=== PATIENT | female | born 1995 | race Caucasian/White ===

== ENCOUNTER 2017-10-09 13:30 | Outpatient (RCR) | payer OTHER, SELFPAY ==
--- NOTE | 2017-09-16 13:14 | PT.OPPOC ---
Current Diagnoses Complex regional pain syndrome I, unspecified (09/16/17) Provider Visit Care Team Role Provider Type Swathi Hong PA-C Family Provider Non-Staff Primary Care Provider Specialty: Medical Address: [address] [place] [address], [phone] Email: Jorge Montero MD Attending Provider Non-Staff Specialty: Internal Medicine Address: [address] [place] [address], [phone] Email: Plan Of Care PT-OP-T Assessment and Plan Start: 09/16/17 08:08 Freq: Status: Active Protocol: Document 09/16/17 08:20 LRN (Rec: 09/16/17 08:43 LRN [id number]) Physical Therapy Assessment Rehab Potential Rehabilitation Potential Fair Evaluation Complexity Number of Personal Factors/Comorbidities 1-2 Number of Body Systems Impaired 4 or More Clinical Presentation at Evaluation Evolving Impairments Impairments Activity Tolerance Functional Mobility Gait Pain ROM Sensation Soft Tissue Mobility Strength Other Concerns Fall Risk Increased Age Related Concerns 19-35 year old: Impact on work, family. Barriers to Rehabilitation Chronicity of condition. Diagnosis Goals Three Impairment R UE pain limiting ability to weight bear for ambulation. Short Term Goal (STG) Pt will be able to tolerate weightbearing (WBing) through the R UE for ambulation. STG Duration 10/24/17 Two Impairment Debilitating R LE pain Nursing Home Goal (LTG) Decreased R LE pain with pt able to stand and weight bear on the R LE for ambulation with use of an assistive device. LTG Duration 12/19/17 One Impairment Lacks appropriate Home program /self care Sweeper Driver Goal (LTG) Educate pt in independent HEP/ Self care program to manage her condition. LTG Duration 12/19/17 Assessment Summary Assessment Pt presents with extremely limited tolerance to palpation , ROM, movement tolerance of the R LE which is greatly limiting her functional ability. Her R UE is beginning to become limited due to pain that starts proximal to her elbow extending to her finger tips. The pt does not demonstrate increased temperature or severe swelling in the limbs that is somewhat characteristic of CRPS. The pt demonstrates some interesting neurological responses to DTR testing and with her sensation changes it would be recommended that she have a neurological consult. The pt stated she has not yet seen a neurologist. This patient is known to me for treatment of pelvic dysfunction and perineal pain in 2016. At that time the pt had worsening of pain at night and showed notable difference in her UE vs LE deep tendon reflex response. From my understanding from the patient no further medical testing was performed; therefore i would recommend assessment for possible systemic involvement . From previous history intake form the pt had noted a familial history of colon CA. The pt is reluctant to attend therapy with fears of her pain worsening. The pt will benefit from skilled physical therapy to improve her UE/LE mobility, decrease pain, improve mobility and function if tolerated. It is expected that with the pt's severity of pain and dysfunction and per the diagnosis therapy is expected to be extended in duration. Physical Therapy Plan Frequency and Duration Frequency of Treatment 2x/Week Duration of Treatment 3 months Plan of Care Start Date 09/16/17 Plan of Care End Date 12/19/17 Therapeutic Interventions Therapeutic Interventions Aquatic Therapy Gait Training Home Exercise Program Joint Mobilizations Manual Therapy Neuromuscular Re-education Patient/Caregiver Education Self-Care/Home Management Sensory Integration Soft Tissue Mobilization Therapeutic Exercises Modalities Cold Pack/Ice Massage Electric Stimulation Hot Packs Other Referrals/Consults Referrals/Consults Recommended Examination for possible pathological involvement. Neurological consult if sensation changes persist. Next Visit Focus/Plan Next Note Type Treatment Note Next Visit Plan Check Gait. Check muscle tone , recheck L UE DTR's and check for pronator drift, check L hip mobility, check L LE strength & check special tests for hips if pt tolerates. Monitor neurological involvement (sensation, motor, coordination). MH to R LE if tolerated with UE ROM ex's. f /b MH to R UE with manual lumbar or RLE traction & Initiation HEP: LE stretches and ROM. Plan of Care Dates Plan of Care Start Date 09/16/17 Plan of Care End Date 12/19/17 Please Sign and Return: I have reviewed this Plan of Care and certify that the skilled therapy services above are required to meet the patient?s needs. Physician Signature Date Printed Name and Credentials Clinical Instructor Signature Printed Name and Credentials
--- NOTE | 2017-09-16 15:00 | PT.OIE ---
Current Diagnoses Complex regional pain syndrome I, unspecified (09/16/17) Provider Visit Care Team Role Provider Type Swathi Hong PA-C Family Provider Non-Staff Primary Care Provider Specialty: Medical Address: [address] [place] [address], [phone] Email: Jorge Montero MD Attending Provider Non-Staff Specialty: Internal Medicine Address: [address] [place] [address], [phone] Email: Physical Therapy Initial Evaluation PT-OP-A Visit Information Start: 09/16/17 08:08 Freq: Status: Active Protocol: Document 09/16/17 08:20 LRN (Rec: 09/16/17 08:43 LRN [id number]) Out-Patient Physical Therapy Visit Information Visit Information Visit Type Initial Evaluation Visit Note 03/26 Visit Start Time 08:20 Visit Stop Time 09:10 Total Visit Minutes 50 Visit Number 1 Number of PROCESS DEVELOPMENT CHEMIST Visits 0 Evaluation Information Evaluation Date 09/16/17 PT-OP-B Current Condition Start: 09/16/17 08:08 Freq: Status: Active Protocol: Document 09/16/17 08:20 LRN (Rec: 09/16/17 08:43 LRN [id number]) Current Condition History of Current Condition Onset Date 05/2017 Current Complaints Pain and dysfunction in the R LE and beginning in R UE. History of Current Condition Pt reports ~05/2017 she got out of bed and fell forward due to dizziness, landing on primarily her knees. Her knees were sore but she didn't feel she needed to be seen. 2 weeks later her condition worsened in pain and she couldn't walk. An MRI of her knees were normal. 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 She reports the pain is now not just a knee problem but the entire leg. She denies having any vascular test done and has not seen a neurologist . Pain is described as a constant deep ache, like heavy pressure with electrical jolts up/down the R leg and foot. At night she feels like the LE's are on fire. Her R arm is becoming painful after falling on her R arm a month ago, but is a little less painful. She states her pain is the same in the arm as it is in the leg. She states her researched on the web told that her condition could spread. She reports falling 2 -3 times since the original fall, once due to becoming off balance while moving crutches and once due to medications causing low blood pressure and dizziness. She is taking Gabapentin regularly and just yesterday was prescribed an anti-inflammatory to help her sleep. She denies any history of injury to the back/ neck. Prior Treatments and Tests None. Episom bath and LE elevated. Surgery R knee age 10 due to hyperextension and had surgery to create scar tissue. Future Testing and Treatments Planned None. Waiting to be scheduled for the pain clinic in [place]. Treatment Goals Patient/Caregiver Goals Feels she was referred to therapy to begin walking again and was told she had a very long road ahead. Pt is fearful of therapy that it might make the pain in the R LE worse. Her goal is to get better. 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 Current Functional Impairments (Reported) Functional Limitations- ADL's Spouse provides assist, and max A on bad days. Other days she can use crutches to go to the bathroom and self dresses . Functional Limitations- Mobility/Gait Use of crutches or wheelchair. Functional Limitations- Work/School Not able to go to place of work; therefore is currently working from home. Functional Limitations- Recreation/ Not able to participate. Hobbies Personal Factors Other Personal Factors That May Effect Works at home because unable Therapy/Recovery to travel to workplace. Works 35 down to 20 hrs/week, 2 days a week. History of falls PT-OP-C Subjective Start: 09/16/17 08:08 Freq: Status: Active Protocol: Document 09/16/17 08:20 LRN (Rec: 09/16/17 08:43 LRN [id number]) Patient Questionnaires Lower Extremity Functional Scale LEFS Score 18 LEFS Impairment 60 to 79% Impaired (Score 17- 31) OP-PT Pain Assessment Pain Assessment Grid Paper Pain Assessment Grid Completed Yes Location Right Leg Pain Location Details Entire R leg. Intensity 5 Scale Used Numeric (1 - 10) Right Arm Pain Location Details R arm from mid-upper arm distally Intensity 4 Scale Used Numeric (1 - 10) Home Pain Medication Use Pain Medications Used Yes Pain Behaviors Pain Behaviors Wincing Comments Pain Comments Pain reported pain is a constant deep ache, like heavy pressure with electrical jolts up/down the R leg and foot, and R UE. PT-OP-F Manual Assessment Start: 09/16/17 08:08 Freq: Status: Active Protocol: Document 09/16/17 08:20 LRN (Rec: 09/16/17 17:54 LRN [id number]) Manual Assessments Soft Tissue Assessment Soft Tissue Mobility Assessment Mild increased temperature of R foot. Purple coloring of R foot when dependent. PT-OP-G Mobility & Gait Start: 09/16/17 08:08 Freq: Status: Active Protocol: Document 09/16/17 08:20 LRN (Rec: 09/16/17 17:54 LRN [id number]) OP Gait Assessment Gait Gait Assistance Required: Standby Assistance Total Assistance Able to Maintain Weight Bearing Status No During Gait Factors Limiting Gait Function Factors Limiting Gait Function Decreased Activity Tolerance Decreased Strength Limited Range of Motion Pain Poor Balance Comments Gait Comments Pt unable to ambulate due to pain in the R LE & UE. She is able to partially stand pivot transfer wheelchair to plinth with NWBing on R LE. PT-OP-H Neuro Start: 09/16/17 08:08 Freq: Status: Active Protocol: Document 09/16/17 08:20 LRN (Rec: 09/16/17 17:54 LRN [id number]) Sensation Evaluation Gross Sensation Gross Sensation Right LE Impaired Sensation Description Hyperesthesia [place] Burning Location Details Right Leg Light Touch Intact/Normal Deep Tendon Reflex & Clonus Assessment Deep Tendon Reflex Left Brachioradialis Deep Tendon Reflex 2+ Normal Left Tricep Deep Tendon Reflex 2+ Normal Left Bicep Deep Tendon Reflex 2+ Normal Right Brachioradialis Deep Tendon Reflex 2+ Normal Right Tricep Deep Tendon Reflex 1+ Diminished Right Bicep Deep Tendon Reflex 0 Absent Left Achilles Deep Tendon Reflex 3+ Normal But Brisk Left Patellar Deep Tendon Reflex 1+ Diminished Right Achilles Deep Tendon Reflex 0 Absent Right Patellar Deep Tendon Reflex 1+ Diminished PT-OP-K Range of Motion Start: 09/16/17 08:08 Freq: Status: Active Protocol: Document 07/03/18 08:20 LRN (Rec: 07/03/18 17:54 LRN [id number]) Hip Goniometric Range of Motion Hip Measured in Degrees Left Passive Straight Leg Raise 80 Right Passive Straight Leg Raise 15 Internal Rotation 20 External Rotation 65 Knee Goniometric Range of Motion Knee Measured in Degrees Left Flexion Active (degrees) 155 Extension Active (degrees) 0 Right Flexion Active (degrees) 130 Knee ROM Limitations Comments R knee lacks 15 deg's ext due to general pain. PT-OP-M Strength Start: 09/16/17 08:08 Freq: Status: Active Protocol: Document 09/16/17 08:20 LRN (Rec: 09/16/17 17:55 LRN [id number]) Ankle/Foot Strength Ankle and Foot Manual Muscle Testing Right Dorsiflexion (L4) 3- Fair- Plantarflexion (S1) 4 Good Inversion 3- Fair- Eversion (S1) 3- Fair- Comments Pain in LE with testing. Toe Strength Toe Manual Muscle Testing Right Flexion 3- Fair- Extension 2- Poor- Comments R LE pain with testing. PT-OP-Q Treatments Start: 09/16/17 08:08 Freq: Status: Active Protocol: Document 09/16/17 08:20 LRN (Rec: 09/16/17 17:16 LRN [id number]) Self-Care/Home Management Treatment Education Patient Education Home Exercise Program Activities Self-Care/Home Management Activities I/S pt in self RLE manual traction in hooklie and sitting knee ext/ankle DF for stretch to RLE. PT-OP-T Assessment and Plan Start: 09/16/17 08:08 Freq: Status: Active Protocol: Document 09/16/17 08:20 LRN (Rec: 09/16/17 08:43 LRN [id number]) Physical Therapy Assessment Rehab Potential Rehabilitation Potential Fair Evaluation Complexity Number of Personal Factors/Comorbidities 1-2 Number of Body Systems Impaired 4 or More Clinical Presentation at Evaluation Evolving Impairments Impairments Activity Tolerance Functional Mobility Gait Pain ROM Sensation Soft Tissue Mobility Strength Other Concerns Fall Risk Increased Age Related Concerns 19-35 year old: Impact on work, family. Barriers to Rehabilitation Chronicity of condition. Diagnosis Goals Three Impairment R UE pain limiting ability to weight bear for ambulation. Short Term Goal (STG) Pt will be able to tolerate weightbearing (WBing) through the R UE for ambulation. STG Duration 8/10/18 Two Impairment Debilitating R LE pain Longterm Goal (LTG) Decreased R LE pain with pt able to stand and weight bear on the R LE for ambulation with use of an assistive device. LTG Duration 12/19/17 One Impairment Lacks appropriate Home program /self care Longterm Goal (LTG) Educate pt in independent HEP/ Self care program to manage her condition. LTG Duration 12/19/17 Assessment Summary Assessment Pt presents with extremely limited tolerance to palpation , ROM, movement tolerance of the R LE which is greatly limiting her functional ability. Her R UE is beginning to become limited due to pain that starts proximal to her elbow extending to her finger tips. The pt does not demonstrate increased temperature or severe swelling in the limbs that is somewhat characteristic of CRPS. The pt demonstrates some interesting neurological responses to DTR testing and with her sensation changes it would be recommended that she have a neurological consult. The pt stated she has not yet seen a neurologist. This patient is known to me for treatment of pelvic dysfunction and perineal pain in 2015. At that time the pt had worsening of pain at night and showed notable difference in her UE vs LE deep tendon reflex response. From my understanding from the patient no further medical testing was performed; therefore i would recommend assessment for possible systemic involvement . From previous history intake form the pt had noted a familial history of colon CA. The pt is reluctant to attend therapy with fears of her pain worsening. The pt will benefit from skilled physical therapy to improve her UE/LE mobility, decrease pain, improve mobility and function if tolerated. It is expected that with the pt's severity of pain and dysfunction and per the diagnosis therapy is expected to be extended in duration. Physical Therapy Plan Frequency and Duration Frequency of Treatment 2x/Week Duration of Treatment 3 months Plan of Care Start Date 09/16/17 Plan of Care End Date 12/19/17 Therapeutic Interventions Therapeutic Interventions Aquatic Therapy Gait Training Home Exercise Program Joint Mobilizations Manual Therapy Neuromuscular Re-education Patient/Caregiver Education Self-Care/Home Management Sensory Integration Soft Tissue Mobilization Therapeutic Exercises Modalities Cold Pack/Ice Massage Electric Stimulation Hot Packs Other Referrals/Consults Referrals/Consults Recommended Examination for possible pathological involvement. Neurological consult if sensation changes persist. Next Visit Focus/Plan Next Note Type Treatment Note Next Visit Plan Check Gait. Check muscle tone , recheck L UE DTR's and check for pronator drift, check L hip mobility, check L LE strength & check special tests for hips if pt tolerates. Monitor neurological involvement (sensation, motor, coordination). MH to R LE if tolerated with UE ROM ex's. f /b MH to R UE with manual lumbar or RLE traction & Initiation HEP: LE stretches and ROM.
--- NOTE | 2017-09-19 14:50 | PT.OTN ---
Current Diagnoses Complex regional pain syndrome I, unspecified (09/19/17) Physical Therapy Treatment Note PT-OP-A Visit Information Start: 09/16/17 08:08 Freq: Status: Active Protocol: Document 09/19/17 08:20 LRN (Rec: 09/19/17 09:05 LRN [id number]) Out-Patient Physical Therapy Visit Information Visit Information Visit Type Treatment Note Visit Note 04/26 Visit Start Time 08:20 Visit Stop Time 09:05 Total Visit Minutes 45 Visit Number 2 Number of CHANGE MANAGEMENT CONSULTANT Visits 0 Evaluation Information Evaluation Date 09/16/17 PT-OP-B Current Condition Start: 09/16/17 08:08 Freq: Status: Active Protocol: Document 09/16/17 08:20 LRN (Rec: 09/16/17 08:43 LRN [id number]) Current Condition History of Current Condition Onset Date 05/2017 Current Complaints Pain and dysfunction in the R LE and beginning in R UE. History of Current Condition Pt reports ~05/2017 she got out of bed and fell forward due to dizziness, landing on primarily her knees. Her knees were sore but she didn't feel she needed to be seen. 2 weeks later her condition worsened in pain and she couldn't walk. An MRI of her knees were normal. 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 She reports the pain is now not just a knee problem but the entire leg. She denies having any vascular test done and has not seen a neurologist . Pain is described as a constant deep ache, like heavy pressure with electrical jolts up/down the R leg and foot. At night she feels like the LE's are on fire. Her R arm is becoming painful after falling on her R arm a month ago, but is a little less painful. She states her pain is the same in the arm as it is in the leg. She states her researched on the web told that her condition could spread. She reports falling 2 -3 times since the original fall, once due to becoming off balance while moving crutches and once due to medications causing low blood pressure and dizziness. She is taking Gabapentin regularly and just yesterday was prescribed an anti-inflammatory to help her sleep. She denies any history of injury to the back/ neck. Prior Treatments and Tests None. Episom bath and LE elevated. Surgery R knee age 10 due to hyperextension and had surgery to create scar tissue. Future Testing and Treatments Planned None. Waiting to be scheduled for the pain clinic in [place]. Treatment Goals Patient/Caregiver Goals Feels she was referred to therapy to begin walking again and was told she had a very long road ahead. Pt is fearful of therapy that it might make the pain in the R LE worse. Her goal is to get better. 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 Current Functional Impairments (Reported) Functional Limitations- ADL's Spouse provides assist, and max A on bad days. Other days she can use crutches to go to the bathroom and self dresses . Functional Limitations- Mobility/Gait Use of crutches or wheelchair. Functional Limitations- Work/School Not able to go to place of work; therefore is currently working from home. Functional Limitations- Recreation/ Not able to participate. Hobbies Personal Factors Other Personal Factors That May Effect Works at home because unable Therapy/Recovery to travel to workplace. Works 35 down to 20 hrs/week, 2 days a week. History of falls PT-OP-C Subjective Start: 09/16/17 08:08 Freq: Status: Active Protocol: Document 09/19/17 08:20 LRN (Rec: 09/19/17 09:05 LRN [id number]) OP-PT Subjective Patient Comments Patient Comments States her R foot is more painful than the entire leg, 2 /10. States she wasn't too bad after the last session. PT-OP-F Manual Assessment Start: 09/16/17 08:08 Freq: Status: Active Protocol: Document 09/16/17 08:20 LRN (Rec: 09/16/17 17:54 LRN [id number]) Manual Assessments Soft Tissue Assessment Soft Tissue Mobility Assessment Mild increased temperature of R foot. Purple coloring of R foot when dependent. PT-OP-G Mobility & Gait Start: 09/16/17 08:08 Freq: Status: Active Protocol: Document 09/16/17 08:20 LRN (Rec: 09/16/17 17:54 LRN [id number]) OP Gait Assessment Gait Gait Assistance Required: Standby Assistance Total Assistance Able to Maintain Weight Bearing Status No During Gait Factors Limiting Gait Function Factors Limiting Gait Function Decreased Activity Tolerance Decreased Strength Limited Range of Motion Pain Poor Balance Comments Gait Comments Pt unable to ambulate due to pain in the R LE & UE. She is able to partially stand pivot transfer wheelchair to int with NWBing on R LE. PT-OP-H Neuro Start: 09/16/17 08:08 Freq: Status: Active Protocol: Document 09/19/17 08:10 LRN (Rec: 09/19/17 14:34 LRN [id number]) Sensation Evaluation Location Details Right Leg Light Touch Impaired Sharp/Dull Impaired Deep Pressure Impaired Hot/Cold Intact/Normal Proprioception (Position) Intact/Normal Comments Summary Comments R UE impairment is HYPERsensitivity. Muscle Tone Tone Assessment Right Lower Extremity Flexor Tone Description Mild Hypertonicity PT-OP-J Posture/Palpation/Skin Start: 09/16/17 08:08 Freq: Status: Active Protocol: Document 09/19/17 08:20 LRN (Rec: 09/19/17 14:46 LRN [id number]) Skin Assessment Circumference Measurement 1 Location Fig 8 at ankle Measurement (Centimeters) 49 Comments Bilaterally PT-OP-K Range of Motion Start: 09/16/17 08:08 Freq: Status: Active Protocol: Document 09/16/17 08:20 LRN (Rec: 09/16/17 17:54 LRN [id number]) Hip Goniometric Range of Motion Hip Measured in Degrees Left Passive Straight Leg Raise 80 Right Passive Straight Leg Raise 15 Internal Rotation 20 External Rotation 65 Knee Goniometric Range of Motion Knee Measured in Degrees Left Flexion Active (degrees) 155 Extension Active (degrees) 0 Right Flexion Active (degrees) 130 Knee ROM Limitations Comments R knee lacks 15 deg's ext due to general pain. PT-OP-L Special Tests Start: 09/16/17 08:08 Freq: Status: Active Protocol: Document 09/19/17 08:20 LRN (Rec: 09/19/17 14:36 LRN [id number]) Special Tests Neural Special Tests- Upper Body Other- 1 Test Results + Right Comments Pronator Drift Test, R arm drifts down. Indicates possible upper motor neuron impairment. PT-OP-M Strength Start: 09/16/17 08:08 Freq: Status: Active Protocol: Document 09/16/17 08:20 LRN (Rec: 09/16/17 17:55 LRN [id number]) Ankle/Foot Strength Ankle and Foot Manual Muscle Testing Right Dorsiflexion (L4) 3- Fair- Plantarflexion (S1) 4 Good Inversion 3- Fair- Eversion (S1) 3- Fair- Comments Pain in LE with testing. Toe Strength Toe Manual Muscle Testing Right Flexion 3- Fair- Extension 2- Poor- Comments R LE pain with testing. PT-OP-Q Treatments Start: 09/16/17 08:08 Freq: Status: Active Protocol: Document 09/19/17 08:20 LRN (Rec: 09/19/17 09:05 LRN [id number]) Therapeutic Exercises Supine Exercises 5 Supine Exercise Name Elbow flex/ext Side right Reps/Minutes 10-20 as tolerated Comments With 4 Supine Exercise Name Fingers/Wrist AROM Side right Reps/Minutes 10-20 as tolerated Comments With 3 Supine Exercise Name Knee flex/extension Side right Reps/Minutes 10 Comments With 2 Supine Exercise Name ankle AROM (PF/DF/IV/EV) Side right Reps/Minutes 10-20 as tolerated Comments With MH 1 Supine Exercise Name toe flex/ext Side right Reps/Minutes 10-20 as tolerated Comments With Sitting Exercises 2 Sitting Exercise Name Ankle PF/DF Reps/Minutes 10-20 as tolerated Comments Toes purple with good vascular refill noted. 1 Sitting Exercise Name PROM of LE's/UE's Bilaterally Reps/Minutes 5' Comments Checking ROM and Tone Gait Training Gait Activity 1 Description Gait training using FWW Device Used FWW Level of Assistance CGA Surface Level Distance/Duration 5 min Treatment Focus Slow WBing onto the R LE. Comments PT ~30% WBing R LE per pt report Manual Therapy Treatment Manual Techniques 1 Type Palpation of skin for sensation check Body Location UE's/LE's. Body Position Sitting Reps/Duration 10' Comments Soft Touch: R leg is hypersensitive, R foot - normal. Sharp/Dull: R leg/foot & R forearm/hand - hypersensitive. Hot/Cold: R leg - decreased sensitivity. R foot - normal. R UE - normal. TONE: R knee flexion tone. Self-Care/Home Management Treatment Activities Self-Care/Home Management Activities I/S pt in R LE AROM ex with use of heat prior or during exercise. PT-OP-R Modalities Start: 09/16/17 08:08 Freq: Status: Active Protocol: Document 09/19/17 08:20 LRN (Rec: 09/19/17 09:05 LRN [id number]) Hot Pack/Cold Pack Treatment Hot Pack Location R UE/LE Patient Position Supine Treatment Duration (minutes) 20 Patient Tolerance Good Comments + response with use of MH, pt felt joints were easier to move. PT-OP-T Assessment and Plan Start: 09/16/17 08:08 Freq: Status: Active Protocol: Document 09/19/17 08:20 LRN (Rec: 09/19/17 09:05 LRN [id number]) Physical Therapy Assessment Rehab Potential Rehabilitation Potential Fair Evaluation Complexity Number of Personal Factors/Comorbidities 1-2 Number of Body Systems Impaired 4 or More Clinical Presentation at Evaluation Evolving Impairments Impairments Activity Tolerance Functional Mobility Gait Pain ROM Sensation Soft Tissue Mobility Strength Other Concerns Fall Risk Increased Age Related Concerns 19-35 year old: Impact on work, family. Barriers to Rehabilitation Chronicity of condition. Diagnosis Goals Three Impairment R UE pain limiting ability to weight bear for ambulation. Short Term Goal (STG) Pt will be able to tolerate weightbearing (WBing) through the R UE for ambulation. STG Duration 10/24/17 Two Impairment Debilitating R LE pain Bean Dumper Goal (LTG) Decreased R LE pain with pt able to stand and weight bear on the R LE for ambulation with use of an assistive device. LTG Duration 12/19/17 One Impairment Lacks appropriate Home program /self care Bean Dumper Goal (LTG) Educate pt in independent HEP/ Self care program to manage her condition. LTG Duration 12/19/17 Assessment Summary Assessment Pt shows no signs of swelling (Fig 8 assessment is symmetrical bilaterally) and increased temperature of the R LE/UE today. Coloration of the lower leg and foot is purplish in color, but when depressed, refills quickly indicating good vascular flow although coloration is not normal. Hypersensitivity to sharp/dull/soft touch and intact for hot/cold in the R UE/LE. Coordination is equal bilaterally for toe taps & haque slides. Pt mental status is good. Pt tolerated ROM ex 's very well with use of MH to start. Good tolerance to gait although endurance is greatly limited, possibly due to pain fear. Physical Therapy Plan Frequency and Duration Frequency of Treatment 2x/Week Duration of Treatment 3 months Plan of Care Start Date 09/16/17 Plan of Care End Date 12/19/17 Therapeutic Interventions Therapeutic Interventions Aquatic Therapy Gait Training Home Exercise Program Joint Mobilizations Manual Therapy Neuromuscular Re-education Patient/Caregiver Education Self-Care/Home Management Sensory Integration Soft Tissue Mobilization Therapeutic Exercises Modalities Cold Pack/Ice Massage Electric Stimulation Hot Packs Other Referrals/Consults Referrals/Consults Recommended Examination for possible pathological involvement. Neurological consult if sensation changes persist. Next Visit Focus/Plan Next Note Type Treatment Note Next Visit Plan Recheck DTR's L & R, check L hip mobility, check L LE strength & check special tests for hips if pt tolerates. Monitor neurological involvement as pt tolerates ( motor, coordination). MH to R LE/UE with manual lumbar or RLE traction, f/b UE/LE ROM ex 's, & Initiation HEP: LE stretches.
--- NOTE | 2017-10-06 15:08 | PT.OTN ---
Current Diagnoses Complex regional pain syndrome I, unspecified (10/06/17) Physical Therapy Treatment Note PT-OP-A Visit Information Start: 09/16/17 08:08 Freq: Status: Active Protocol: Document 10/06/17 13:33 LRN (Rec: 10/06/17 14:39 LRN [id number]) Out-Patient Physical Therapy Visit Information Visit Information Visit Type Treatment Note Visit Note 05/24 Visit Start Time 13:35 Visit Stop Time 14:20 Total Visit Minutes 45 Visit Number 3 Number of CORRECTION WORKER Visits 0 Evaluation Information Evaluation Date 09/16/17 PT-OP-B Current Condition Start: 09/16/17 08:08 Freq: Status: Active Protocol: Document 09/16/17 08:20 LRN (Rec: 09/16/17 08:43 LRN [id number]) Current Condition History of Current Condition Onset Date 05/2017 Current Complaints Pain and dysfunction in the R LE and beginning in R UE. History of Current Condition Pt reports ~05/2017 she got out of bed and fell forward due to dizziness, landing on primarily her knees. Her knees were sore but she didn't feel she needed to be seen. 2 weeks later her condition worsened in pain and she couldn't walk. An MRI of her knees were normal. 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 She reports the pain is now not just a knee problem but the entire leg. She denies having any vascular test done and has not seen a neurologist . Pain is described as a constant deep ache, like heavy pressure with electrical jolts up/down the R leg and foot. At night she feels like the LE's are on fire. Her R arm is becoming painful after falling on her R arm a month ago, but is a little less painful. She states her pain is the same in the arm as it is in the leg. She states her researched on the web told that her condition could spread. She reports falling 2 -3 times since the original fall, once due to becoming off balance while moving crutches and once due to medications causing low blood pressure and dizziness. She is taking Gabapentin regularly and just yesterday was prescribed an anti-inflammatory to help her sleep. She denies any history of injury to the back/ neck. Prior Treatments and Tests None. Episom bath and LE elevated. Surgery R knee age 10 due to hyperextension and had surgery to create scar tissue. Future Testing and Treatments Planned None. Waiting to be scheduled for the pain clinic in [place]. Treatment Goals Patient/Caregiver Goals Feels she was referred to therapy to begin walking again and was told she had a very long road ahead. Pt is fearful of therapy that it might make the pain in the R LE worse. Her goal is to get better. 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 Current Functional Impairments (Reported) Functional Limitations- ADL's Spouse provides assist, and max A on bad days. Other days she can use crutches to go to the bathroom and self dresses . Functional Limitations- Mobility/Gait Use of crutches or wheelchair. Functional Limitations- Work/School Not able to go to place of work; therefore is currently working from home. Functional Limitations- Recreation/ Not able to participate. Hobbies Personal Factors Other Personal Factors That May Effect Works at home because unable Therapy/Recovery to travel to workplace. Works 35 down to 20 hrs/week, 2 days a week. History of falls PT-OP-C Subjective Start: 09/16/17 08:08 Freq: Status: Active Protocol: Document 10/06/17 13:33 LRN (Rec: 10/06/17 14:39 LRN [id number]) OP-PT Subjective Patient Comments Patient Comments Bad week, trying to get more work hours, so extra sore in R foot and ankle. OP-PT Pain Assessment Pain Assessment Grid Paper Pain Assessment Grid Completed No Location Right Leg Pain Location Details R LE, mostly on the foot. PT-OP-F Manual Assessment Start: 09/16/17 08:08 Freq: Status: Active Protocol: Document 09/16/17 08:20 LRN (Rec: 09/16/17 17:54 LRN [id number]) Manual Assessments Soft Tissue Assessment Soft Tissue Mobility Assessment Mild increased temperature of R foot. Purple coloring of R foot when dependent. PT-OP-G Mobility & Gait Start: 09/16/17 08:08 Freq: Status: Active Protocol: Document 09/16/17 08:20 LRN (Rec: 09/16/17 17:54 LRN [id number]) OP Gait Assessment Gait Gait Assistance Required: Standby Assistance Total Assistance Able to Maintain Weight Bearing Status No During Gait Factors Limiting Gait Function Factors Limiting Gait Function Decreased Activity Tolerance Decreased Strength Limited Range of Motion Pain Poor Balance Comments Gait Comments Pt unable to ambulate due to pain in the R LE & UE. She is able to partially stand pivot [facility] NW[facility]ing on R LE. PT-OP-H Neuro Start: 09/16/17 08:08 Freq: Status: Active Protocol: Document 10/06/17 13:33 LRN (Rec: 10/06/17 14:39 LRN [id number]) Deep Tendon Reflex & Clonus Assessment Deep Tendon Reflex Right Achilles Deep Tendon Reflex 4+ Brisk PT-OP-J Posture/Palpation/Skin Start: 09/16/17 08:08 Freq: Status: Active Protocol: Document 09/19/17 08:20 LRN (Rec: 09/19/17 14:46 LRN [id number]) Skin Assessment Circumference Measurement 1 Location Fig 8 at ankle Measurement (Centimeters) 49 Comments Bilaterally PT-OP-K Range of Motion Start: 09/16/17 08:08 Freq: Status: Active Protocol: Document 10/06/17 13:33 LRN (Rec: 10/06/17 14:42 LRN [id number]) Hip Goniometric Range of Motion Hip Measured in Degrees Left Passive Testing Position Supine Abduction 70 Internal Rotation 20 External Rotation 55 Right Passive Testing Position Supine Flexion w/Knee Flexed 90 Abduction 40 Internal Rotation 10 External Rotation 60 Knee Goniometric Range of Motion Knee Measured in Degrees Right Extension Passive (degrees) 0 PT-OP-L Special Tests Start: 09/16/17 08:08 Freq: Status: Active Protocol: Document 09/19/17 08:20 LRN (Rec: 09/19/17 14:36 LRN [id number]) Special Tests Neural Special Tests- Upper Body Other- 1 Test Results + Right Comments Pronator Drift Test, R arm drifts down. Indicates possible upper motor neuron impairment. PT-OP-M Strength Start: 09/16/17 08:08 Freq: Status: Active Protocol: Document 09/16/17 08:20 LRN (Rec: 09/16/17 17:55 LRN [id number]) Ankle/Foot Strength Ankle and Foot Manual Muscle Testing Right Dorsiflexion (L4) 3- Fair- Plantarflexion (S1) 4 Good Inversion 3- Fair- Eversion (S1) 3- Fair- Comments Pain in LE with testing. Toe Strength Toe Manual Muscle Testing Right Flexion 3- Fair- Extension 2- Poor- Comments R LE pain with testing. PT-OP-Q Treatments Start: 09/16/17 08:08 Freq: Status: Active Protocol: Document 10/06/17 13:33 LRN (Rec: 10/06/17 14:39 LRN [id number]) Therapeutic Exercises Supine Exercises 8 Supine Exercise Name Piriformis stretch Side right Reps/Minutes 1x Comments 60 sec hold 7 Supine Exercise Name Lateral hip stretch Side right Reps/Minutes 2x Comments Hold 60 sec's 6 Supine Exercise Name Active neural stretch Side right Reps/Minutes 3' 5 Supine Exercise Name Elbow flex/ext Side right Reps/Minutes 10-20 as tolerated Comments With 4 Supine Exercise Name Fingers/Wrist AROM Side right Reps/Minutes 10-20 as tolerated Comments With 3 Supine Exercise Name Knee flex/extension Side right Reps/Minutes 10 Comments With 2 Supine Exercise Name ankle AROM (PF/DF/IV/EV) Side right Reps/Minutes 10-20 as tolerated Comments With 1 Supine Exercise Name toe flex/ext Side right Reps/Minutes 10-20 as tolerated Comments With Sitting Exercises 3 Sitting Exercise Name LE Neural stretch Side right Reps/Minutes 1x 2 Sitting Exercise Name Ankle PF/DF Reps/Minutes 10-20 as tolerated Comments Toes purple with good vascular refill noted. 1 Sitting Exercise Name Active knee ext Reps/Minutes 10x Comments Pt leg jerking trying to hold knee in ext. Gait Training Gait Activity 1 Description Gait training using FWW Device Used FWW Level of Assistance CGA Surface Level Distance/Duration 4 min Treatment Focus Slow WBing onto the R LE. Comments PT ~50% WBing R LE per pt report Self-Care/Home Management Treatment Education Patient Education Home Exercise Program Other Education Pt educated in proper sitting to avoid knee flexion contracture. Activities Self-Care/Home Management Activities I/S pt in HEP: R Lateral hip/ Piriformis stretch; Sitting: LE neural stretch & knee ext. Encouraged pt to get FWW to start walking. PT-OP-R Modalities Start: 09/16/17 08:08 Freq: Status: Active Protocol: Document 10/06/17 13:33 LRN (Rec: 10/06/17 14:39 LRN [id number]) Hot Pack/Cold Pack Treatment Hot Pack Location R UE/LE Patient Position Supine Treatment Duration (minutes) 20 Patient Tolerance Good Comments MH durin ex's showed + response with use of MH, pt felt joints were easier to move. PT-OP-T Assessment and Plan Start: 09/16/17 08:08 Freq: Status: Active Protocol: Document 10/06/17 13:33 LRN (Rec: 10/06/17 14:39 LRN [id number]) Physical Therapy Assessment Goals Three Impairment R UE pain limiting ability to weight bear for ambulation. Short Term Goal (STG) Pt will be able to tolerate weightbearing (WBing) through the R UE for ambulation. STG Duration 10/24/17 (10/06/17) GOAL MET Detention Goal (LTG) Pt will be able to tolerate use her R UE for functional activities. LTG Duration 10/24/17 Two Impairment Debilitating R LE pain Short Term Goal (STG) Decreased R LE pain with pt able to stand and weight bear on the R LE for ambulation with use of an assistive device. STG Duration 10/06/17 GOAL MET Detention Goal (LTG) Pt will be able to ambulate without use of an assistive device for short distances of 25' or more. LTG Duration 12/19/17 One Impairment Lacks appropriate Home program /self care Detention Goal (LTG) Educate pt in independent HEP/ Self care program to manage her condition. LTG Duration 12/19/17 Progress Towards Goals Progress Comments STG's #2 & #3 Met. Assessment Summary Assessment Pt was able to tolerate touching of her RLE to assist with positioning and ex's. Sensitivity seems to be lessening. She is now able to wear a soft slipper on her feet for ambulation. Pt reports Clonus of R foot at night, but not noticed during therapy. Pt did have jerky movement of the R LE when trying to do knee ext strengthening. Physical Therapy Plan Frequency and Duration Frequency of Treatment 2x/Week Duration of Treatment 3 months Plan of Care Start Date 09/16/17 Plan of Care End Date 12/19/17 Next Visit Focus/Plan Next Note Type Treatment Note Next Visit Plan Recheck DTR's L & R, check L LE strength & check special tests for hips if pt tolerates . Monitor neurological involvement as pt tolerates ( motor, coordination). MH to R LE/UE with manual lumbar or RLE traction, f/b UE/LE ROM ex 's, & Initiation HEP: LE stretches.
--- NOTE | 2017-10-09 14:25 | PT.OTN ---
Current Diagnoses Complex regional pain syndrome I, unspecified (10/09/17) Physical Therapy Treatment Note PT-OP-A Visit Information Start: 09/16/17 08:08 Freq: Status: Active Protocol: Document 10/09/17 13:29 LRN (Rec: 10/09/17 14:24 LRN [id number]) Out-Patient Physical Therapy Visit Information Visit Information Visit Type Treatment Note Visit Note 06/24 Visit Start Time 13:29 Visit Stop Time 14:14 Total Visit Minutes 45 Visit Number 4 Number of GLASS GRINDER Visits 0 Evaluation Information Evaluation Date 09/16/17 PT-OP-B Current Condition Start: 09/16/17 08:08 Freq: Status: Active Protocol: Document 09/16/17 08:20 LRN (Rec: 09/16/17 08:43 LRN [id number]) Current Condition History of Current Condition Onset Date 05/2017 Current Complaints Pain and dysfunction in the R LE and beginning in R UE. History of Current Condition Pt reports ~05/2017 she got out of bed and fell forward due to dizziness, landing on primarily her knees. Her knees were sore but she didn't feel she needed to be seen. 2 weeks later her condition worsened in pain and she couldn't walk. An MRI of her knees were normal. 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 She reports the pain is now not just a knee problem but the entire leg. She denies having any vascular test done and has not seen a neurologist . Pain is described as a constant deep ache, like heavy pressure with electrical jolts up/down the R leg and foot. At night she feels like the LE's are on fire. Her R arm is becoming painful after falling on her R arm a month ago, but is a little less painful. She states her pain is the same in the arm as it is in the leg. She states her researched on the web told that her condition could spread. She reports falling 2 -3 times since the original fall, once due to becoming off balance while moving crutches and once due to medications causing low blood pressure and dizziness. She is taking Gabapentin regularly and just yesterday was prescribed an anti-inflammatory to help her sleep. She denies any history of injury to the back/ neck. Prior Treatments and Tests None. Episom bath and LE elevated. Surgery R knee age 10 due to hyperextension and had surgery to create scar tissue. Future Testing and Treatments Planned None. Waiting to be scheduled for the pain clinic in [place]. Treatment Goals Patient/Caregiver Goals Feels she was referred to therapy to begin walking again and was told she had a very long road ahead. Pt is fearful of therapy that it might make the pain in the R LE worse. Her goal is to get better. 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 Current Functional Impairments (Reported) Functional Limitations- ADL's Spouse provides assist, and max A on bad days. Other days she can use crutches to go to the bathroom and self dresses . Functional Limitations- Mobility/Gait Use of crutches or wheelchair. Functional Limitations- Work/School Not able to go to place of work; therefore is currently working from home. Functional Limitations- Recreation/ Not able to participate. Hobbies Personal Factors Other Personal Factors That May Effect Works at home because unable Therapy/Recovery to travel to workplace. Works 35 down to 20 hrs/week, 2 days a week. History of falls PT-OP-C Subjective Start: 09/16/17 08:08 Freq: Status: Active Protocol: Document 10/09/17 13:29 LRN (Rec: 10/09/17 14:24 LRN [id number]) OP-PT Subjective Patient Comments Patient Comments The R knee foot and ankle has hurt worse. Pain is rated 4-5 /10 R arm/hand is a liottle sore. PT-OP-F Manual Assessment Start: 09/16/17 08:08 Freq: Status: Active Protocol: Document 09/16/17 08:20 LRN (Rec: 09/16/17 17:54 LRN [id number]) Manual Assessments Soft Tissue Assessment Soft Tissue Mobility Assessment Mild increased temperature of R foot. Purple coloring of R foot when dependent. PT-OP-G Mobility & Gait Start: 09/16/17 08:08 Freq: Status: Active Protocol: Document 09/16/17 08:20 LRN (Rec: 09/16/17 17:54 LRN [id number]) OP Gait Assessment Gait Gait Assistance Required: Standby Assistance Total Assistance Able to Maintain Weight Bearing Status No During Gait Factors Limiting Gait Function Factors Limiting Gait Function Decreased Activity Tolerance Decreased Strength Limited Range of Motion Pain Poor Balance Comments Gait Comments Pt unable to ambulate due to pain in the R LE & UE. She is able to partially stand pivot transfer wheelchair to plinth with NWBing on R LE. PT-OP-H Neuro Start: 09/16/17 08:08 Freq: Status: Active Protocol: Document 10/06/17 13:33 LRN (Rec: 10/06/17 14:39 LRN [id number]) Deep Tendon Reflex & Clonus Assessment Deep Tendon Reflex Right Achilles Deep Tendon Reflex 4+ Brisk PT-OP-J Posture/Palpation/Skin Start: 09/16/17 08:08 Freq: Status: Active Protocol: Document 09/19/17 08:20 LRN (Rec: 09/19/17 14:46 LRN [id number]) Skin Assessment Circumference Measurement 1 Location Fig 8 at ankle Measurement (Centimeters) 49 Comments Bilaterally PT-OP-K Range of Motion Start: 09/16/17 08:08 Freq: Status: Active Protocol: Document 10/06/17 13:33 LRN (Rec: 10/06/17 14:42 LRN [id number]) Hip Goniometric Range of Motion Hip Measured in Degrees Left Passive Testing Position Supine Abduction 70 Internal Rotation 20 External Rotation 55 Right Passive Testing Position Supine Flexion w/Knee Flexed 90 Abduction 40 Internal Rotation 10 External Rotation 60 Knee Goniometric Range of Motion Knee Measured in Degrees Right Extension Passive (degrees) 0 PT-OP-L Special Tests Start: 09/16/17 08:08 Freq: Status: Active Protocol: Document 09/19/17 08:20 LRN (Rec: 09/19/17 14:36 LRN [id number]) Special Tests Neural Special Tests- Upper Body Other- 1 Test Results + Right Comments Pronator Drift Test, R arm drifts down. Indicates possible upper motor neuron impairment. PT-OP-M Strength Start: 09/16/17 08:08 Freq: Status: Active Protocol: Document 09/16/17 08:20 LRN (Rec: 09/16/17 17:55 LRN [id number]) Ankle/Foot Strength Ankle and Foot Manual Muscle Testing Right Dorsiflexion (L4) 3- Fair- Plantarflexion (S1) 4 Good Inversion 3- Fair- Eversion (S1) 3- Fair- Comments Pain in LE with testing. Toe Strength Toe Manual Muscle Testing Right Flexion 3- Fair- Extension 2- Poor- Comments R LE pain with testing. PT-OP-Q Treatments Start: 09/16/17 08:08 Freq: Status: Active Protocol: Document 10/09/17 13:29 LRN (Rec: 10/09/17 14:24 LRN [id number]) Cardio Equipment Recumbent Elliptical ([employer]) Duration (Minutes) 5 Seat Position Knees in full ext Therapeutic Exercises Supine Exercises 9 Supine Exercise Name Matt BKFO Resistance none Reps/Minutes 10x 6 Supine Exercise Name Active neural stretch Side right Reps/Minutes 3' 5 Supine Exercise Name Elbow flex/ext Side right Reps/Minutes 10-20 as tolerated Comments With 4 Supine Exercise Name Fingers/Wrist AROM Side right Reps/Minutes 10-20 as tolerated Comments With 3 Supine Exercise Name Knee flex/extension Side right Reps/Minutes 10 Comments With MH 2 Supine Exercise Name ankle AROM (PF/DF/IV/EV) Side right Reps/Minutes 10-20 as tolerated Comments With MH 1 Supine Exercise Name toe flex/ext Side right Reps/Minutes 10-20 as tolerated Comments With Sitting Exercises 4 Sitting Exercise Name UE Elbow Ext/Flex Side right Resistance Lev 2 Equipment Used T-Band Gait Training Gait Activity 1 Description Gait training using FWW Device Used FWW Level of Assistance CGA Surface Level Distance/Duration 3 min Treatment Focus Slow WBing onto the R LE. Comments PT ~40% WBing R LE per pt report Self-Care/Home Management Treatment Education Patient Education Home Exercise Program Activities Self-Care/Home Management Activities Issued Lev 2 T-Band and I/S pt in Elbow Curl/Ext T-Band strengthening ex. Pt to add sit to stands and walk 2x/day; desensitive RLE using touch, water, air, material as tolerated. PT-OP-R Modalities Start: 09/16/17 08:08 Freq: Status: Active Protocol: Document 10/09/17 13:29 LRN (Rec: 10/09/17 14:24 LRN [id number]) Hot Pack/Cold Pack Treatment Hot Pack Location R UE/LE Patient Position Supine Treatment Duration (minutes) 20 Patient Tolerance Good Comments during ex's showed + response with use of MH, pt felt joints were easier to move. PT-OP-T Assessment and Plan Start: 09/16/17 08:08 Freq: Status: Active Protocol: Document 10/09/17 13:29 LRN (Rec: 10/09/17 14:24 LRN [id number]) Physical Therapy Assessment Goals Three Impairment R UE pain limiting ability to weight bear for ambulation. Short Term Goal (STG) Pt will be able to tolerate weightbearing (WBing) through the R UE for ambulation. STG Duration 10/24/17 (10/06/17) GOAL MET Intermediate Goal (LTG) Pt will be able to tolerate use her R UE for functional activities. LTG Duration 10/24/17 Two Impairment Debilitating R LE pain Short Term Goal (STG) Decreased R LE pain with pt able to stand and weight bear on the R LE for ambulation with use of an assistive device. STG Duration 10/06/17 GOAL MET Intermediate Goal (LTG) Pt will be able to ambulate without use of an assistive device for short distances of 25' or more. LTG Duration 12/19/17 One Impairment Lacks appropriate Home program /self care Intermediate Goal (LTG) Educate pt in independent HEP/ Self care program to manage her condition. LTG Duration 12/19/17 Assessment Summary Assessment Pt RLE hypersensitive to touch ; therefore held DTR and strength testing. Her RUE's can tolerate strengthening with T-Band. Proximal RLE ( thigh) is normalizing in tolerance to touch. Physical Therapy Plan Frequency and Duration Frequency of Treatment 2x/Week Duration of Treatment 3 months Plan of Care Start Date 09/16/17 Plan of Care End Date 12/19/17 Next Visit Focus/Plan Next Note Type Treatment Note Next Visit Plan Recheck DTR's L & R when pt tolerates, check L LE strength & check special tests for hips if pt tolerates. Monitor neurological involvement as pt tolerates (motor, coordination). MH to R LE/UE with manual lumbar or RLE traction, f/b UE/LE ROM ex's, & Initiation HEP: LE stretches .
--- NOTE | 2017-10-27 15:09 | PT.OTN ---
Current Diagnoses Complex regional pain syndrome I, unspecified (10/27/17) Physical Therapy Treatment Note PT-OP-A Visit Information Start: 09/16/17 08:08 Freq: Status: Active Protocol: Document 10/27/17 13:33 LRN (Rec: 10/27/17 14:36 LRN [id number]) Out-Patient Physical Therapy Visit Information Visit Information Visit Type Treatment Note Visit Note 07/24 Visit Start Time 13:33 Visit Stop Time 14:18 Total Visit Minutes 45 Visit Number 5 Number of NEUROSURGERY SPINE PHYSICIAN Visits 0 Evaluation Information Evaluation Date 09/16/17 PT-OP-B Current Condition Start: 09/16/17 08:08 Freq: Status: Active Protocol: Document 09/16/17 08:20 LRN (Rec: 09/16/17 08:43 LRN [id number]) Current Condition History of Current Condition Onset Date 05/2017 Current Complaints Pain and dysfunction in the R LE and beginning in R UE. History of Current Condition Pt reports ~05/2017 she got out of bed and fell forward due to dizziness, landing on primarily her knees. Her knees were sore but she didn't feel she needed to be seen. 2 weeks later her condition worsened in pain and she couldn't walk. An MRI of her knees were normal. 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 She reports the pain is now not just a knee problem but the entire leg. She denies having any vascular test done and has not seen a neurologist . Pain is described as a constant deep ache, like heavy pressure with electrical jolts up/down the R leg and foot. At night she feels like the LE's are on fire. Her R arm is becoming painful after falling on her R arm a month ago, but is a little less painful. She states her pain is the same in the arm as it is in the leg. She states her researched on the web told that her condition could spread. She reports falling 2 -3 times since the original fall, once due to becoming off balance while moving crutches and once due to medications causing low blood pressure and dizziness. She is taking Gabapentin regularly and just yesterday was prescribed an anti-inflammatory to help her sleep. She denies any history of injury to the back/ neck. Prior Treatments and Tests None. Episom bath and LE elevated. Surgery R knee age 10 due to hyperextension and had surgery to create scar tissue. Future Testing and Treatments Planned None. Waiting to be scheduled for the pain clinic in [place]. Treatment Goals Patient/Caregiver Goals Feels she was referred to therapy to begin walking again and was told she had a very long road ahead. Pt is fearful of therapy that it might make the pain in the R LE worse. Her goal is to get better. 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 Current Functional Impairments (Reported) Functional Limitations- ADL's Spouse provides assist, and max A on bad days. Other days she can use crutches to go to the bathroom and self dresses . Functional Limitations- Mobility/Gait Use of crutches or wheelchair. Functional Limitations- Work/School Not able to go to place of work; therefore is currently working from home. Functional Limitations- Recreation/ Not able to participate. Hobbies Personal Factors Other Personal Factors That May Effect Works at home because unable Therapy/Recovery to travel to workplace. Works 35 down to 20 hrs/week, 2 days a week. History of falls PT-OP-C Subjective Start: 09/16/17 08:08 Freq: Status: Active Protocol: Document 10/27/17 13:33 LRN (Rec: 10/27/17 14:36 LRN [id number]) OP-PT Subjective Patient Comments Patient Comments R leg 1 week ago had increased pain from putting weight through when LOB while in sitting. R thigh and arm is less sensitive. R knee distally is quite sensitive to touch. OP-PT Pain Assessment Pain Assessment Grid Paper Pain Assessment Grid Completed No Location Right Leg Pain Location Details R lower leg from knee distally most painful. PT-OP-F Manual Assessment Start: 09/16/17 08:08 Freq: Status: Active Protocol: Document 09/16/17 08:20 LRN (Rec: 09/16/17 17:54 LRN [id number]) Manual Assessments Soft Tissue Assessment Soft Tissue Mobility Assessment Mild increased temperature of R foot. Purple coloring of R foot when dependent. PT-OP-G Mobility & Gait Start: 09/16/17 08:08 Freq: Status: Active Protocol: Document 09/16/17 08:20 LRN (Rec: 09/16/17 17:54 LRN [id number]) OP Gait Assessment Gait Gait Assistance Required: Standby Assistance Total Assistance Able to Maintain Weight Bearing Status No During Gait Factors Limiting Gait Function Factors Limiting Gait Function Decreased Activity Tolerance Decreased Strength Limited Range of Motion Pain Poor Balance Comments Gait Comments Pt unable to ambulate due to pain in the R LE & UE. She is able to partially stand pivot transfer wheelchair to [facility] with NWBing on R LE. PT-OP-H Neuro Start: 09/16/17 08:08 Freq: Status: Active Protocol: Document 10/27/17 13:33 LRN (Rec: 10/27/17 14:36 LRN [id number]) Coordination Evaluation Lower Extremity Tests Right Foot Tapping Test 6 Left Foot Tapping Test 14 Deep Tendon Reflex & Clonus Assessment Deep Tendon Reflex Left Brachioradialis Deep Tendon Reflex 1+ Diminished Left Tricep Deep Tendon Reflex 1+ Diminished Left Bicep Deep Tendon Reflex 0 Absent Right Brachioradialis Deep Tendon Reflex 0 Absent Right Tricep Deep Tendon Reflex 2+ Normal Right Bicep Deep Tendon Reflex 0 Absent Left Achilles Deep Tendon Reflex 2+ Normal Left Patellar Deep Tendon Reflex 1+ Diminished Right Achilles Deep Tendon Reflex 0 Absent Right Patellar Deep Tendon Reflex 4+ Brisk PT-OP-J Posture/Palpation/Skin Start: 09/16/17 08:08 Freq: Status: Active Protocol: Document 09/19/17 08:20 LRN (Rec: 09/19/17 14:46 LRN [id number]) Skin Assessment Circumference Measurement 1 Location Fig 8 at ankle Measurement (Centimeters) 49 Comments Bilaterally PT-OP-K Range of Motion Start: 09/16/17 08:08 Freq: Status: Active Protocol: Document 10/06/17 13:33 LRN (Rec: 10/06/17 14:42 LRN [id number]) Hip Goniometric Range of Motion Hip Measured in Degrees Left Passive Testing Position Supine Abduction 70 Internal Rotation 20 External Rotation 55 Right Passive Testing Position Supine Flexion w/Knee Flexed 90 Abduction 40 Internal Rotation 10 External Rotation 60 Knee Goniometric Range of Motion Knee Measured in Degrees Right Extension Passive (degrees) 0 PT-OP-L Special Tests Start: 09/16/17 08:08 Freq: Status: Active Protocol: Document 07/06/18 08:20 LRN (Rec: 07/06/18 14:36 LRN [id number]) Special Tests Neural Special Tests- Upper Body Other- 1 Test Results + Right Comments Pronator Drift Test, R arm drifts down. Indicates possible upper motor neuron impairment. PT-OP-M Strength Start: 09/16/17 08:08 Freq: Status: Active Protocol: Document 09/16/17 08:20 LRN (Rec: 09/16/17 17:55 LRN [id number]) Ankle/Foot Strength Ankle and Foot Manual Muscle Testing Right Dorsiflexion (L4) 3- Fair- Plantarflexion (S1) 4 Good Inversion 3- Fair- Eversion (S1) 3- Fair- Comments Pain in LE with testing. Toe Strength Toe Manual Muscle Testing Right Flexion 3- Fair- Extension 2- Poor- Comments R LE pain with testing. PT-OP-Q Treatments Start: 09/16/17 08:08 Freq: Status: Active Protocol: Document 10/27/17 13:33 LRN (Rec: 10/27/17 14:36 LRN [id number]) Therapeutic Exercises Supine Exercises 5 Supine Exercise Name Elbow flex/ext Side right Reps/Minutes 10-20 as tolerated Comments With MH 4 Supine Exercise Name Fingers/Wrist AROM Side right Reps/Minutes 10-20 as tolerated Comments With 3 Supine Exercise Name Knee flex/extension Side right Reps/Minutes 10 Comments With MH 2 Supine Exercise Name ankle AROM (PF/DF/IV/EV) Side right Reps/Minutes 10-20 as tolerated Comments With MH 1 Supine Exercise Name toe flex/ext Side right Reps/Minutes 10-20 as tolerated Comments With Sitting Exercises 1 Sitting Exercise Name Active knee ext Reps/Minutes 10x Gait Training Gait Activity 1 Description Gait training using FWW Device Used FWW Level of Assistance CGA Surface Level Distance/Duration 10 min Treatment Focus Slow WBing onto the R LE. Comments PT ~30% WBing R LE per pt report PT-OP-R Modalities Start: 09/16/17 08:08 Freq: Status: Active Protocol: Document 10/27/17 13:33 LRN (Rec: 10/27/17 14:36 LRN [id number]) Hot Pack/Cold Pack Treatment Hot Pack Location R UE/LE Patient Position Supine Treatment Duration (minutes) 20 Patient Tolerance Good Comments MH during ex's showed + response with use of MH, pt felt joints were easier to move. PT-OP-T Assessment and Plan Start: 09/16/17 08:08 Freq: Status: Active Protocol: Document 10/27/17 13:33 LRN (Rec: 10/27/17 14:36 LRN [id number]) Physical Therapy Assessment Impairments Impairments Activity Tolerance Functional Mobility Gait Pain ROM Sensation Soft Tissue Mobility Strength Other Concerns Fall Risk Increased Age Related Concerns 19-35 year old: Impact on work, family. Barriers to Rehabilitation Chronicity of condition. Diagnosis Goals Three Impairment R UE pain limiting ability to weight bear for ambulation. Short Term Goal (STG) Pt will be able to tolerate weightbearing (WBing) through the R UE for ambulation. STG Duration 10/24/17 (10/06/17) GOAL MET [facility] Goal (LTG) Pt will be able to tolerate use her R UE for functional activities. LTG Duration 11/13/17 Two Impairment Debilitating R LE pain Short Term Goal (STG) Decreased R LE pain with pt able to stand and weight bear on the R LE for ambulation with use of an assistive device. STG Duration 10/06/17 GOAL MET Recoil Spring Winder Goal (LTG) Pt will be able to ambulate without use of an assistive device for short distances of 25' or more. LTG Duration 12/19/17 One Impairment Lacks appropriate Home program /self care [facility] Goal (LTG) Educate pt in independent HEP/ Self care program to manage her condition. LTG Duration 12/19/17 Progress Towards Goals Progress Comments R thigh and R UE is a little less sensitive to touch. Assessment Summary Assessment Poor tolerance to ex & gait. Decreased coordination of RLE per foot taps. R Lower leg/ foot is most hypersensitive to touch. R LE traction increased pain. Pt DTR's are all variable. PT has atrophy of R LE, needs further LE strengthening and neural stretching. Pt may be able to tolerate UE strengthening with TBand and try WBing ex ( UE's). Physical Therapy Plan Frequency and Duration Frequency of Treatment 1-2x/week Duration of Treatment 2 months Plan of Care Start Date 09/16/17 Plan of Care End Date 12/19/17 Therapeutic Interventions Therapeutic Interventions Aquatic Therapy Gait Training Home Exercise Program Joint Mobilizations Manual Therapy Neuromuscular Re-education Patient/Caregiver Education Self-Care/Home Management Sensory Integration Soft Tissue Mobilization Therapeutic Exercises Modalities Cold Pack/Ice Massage Electric Stimulation Hot Packs Next Visit Focus/Plan Next Note Type Treatment Note Next Visit Plan Recheck Achillies DTR's, Check L LE strength & check special tests for hips if pt tolerates. Monitor neurological involvement as pt tolerates (motor, coordination UE's). MH to R LE/UE with manual lumbar, f/b UE/LE ROM ex's, & Initiation HEP: LE stretches. Start when tolerated UE WBing ex's.
--- NOTE | 2017-11-07 15:40 | PT.OPDS ---
Current Diagnoses Complex regional pain syndrome I, unspecified (10/09/17) Provider Visit Care Team Role Provider Type Swathi Hong PA-C Family Provider Non-Staff Primary Care Provider Specialty: Medical Address: [address] [place] [address], [phone] Email: Jorge Montero MD Attending Provider Non-Staff Specialty: Internal Medicine Address: [address] [place] [address], [phone] Email: Visit Number Visit Number 5 Discharge Summary PT-OP-B Current Condition Start: 09/16/17 08:08 Freq: Status: Active Protocol: Document 09/16/17 08:20 LRN (Rec: 09/16/17 08:43 LRN [id number]) Current Condition History of Current Condition Onset Date 05/2017 Current Complaints Pain and dysfunction in the R LE and beginning in R UE. History of Current Condition Pt reports ~05/2017 she got out of bed and fell forward due to dizziness, landing on primarily her knees. Her knees were sore but she didn't feel she needed to be seen. 2 weeks later her condition worsened in pain and she couldn't walk. An MRI of her knees were normal. 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 She reports the pain is now not just a knee problem but the entire leg. She denies having any vascular test done and has not seen a neurologist . Pain is described as a constant deep ache, like heavy pressure with electrical jolts up/down the R leg and foot. At night she feels like the LE's are on fire. Her R arm is becoming painful after falling on her R arm a month ago, but is a little less painful. She states her pain is the same in the arm as it is in the leg. She states her researched on the web told that her condition could spread. She reports falling 2 -3 times since the original fall, once due to becoming off balance while moving crutches and once due to medications causing low blood pressure and dizziness. She is taking Gabapentin regularly and just yesterday was prescribed an anti-inflammatory to help her sleep. She denies any history of injury to the back/ neck. Prior Treatments and Tests None. Episom bath and LE elevated. Surgery R knee age 10 due to hyperextension and had surgery to create scar tissue. Future Testing and Treatments Planned None. Waiting to be scheduled for the pain clinic in [place]. Treatment Goals Patient/Caregiver Goals Feels she was referred to therapy to begin walking again and was told she had a very long road ahead. Pt is fearful of therapy that it might make the pain in the R LE worse. Her goal is to get better. 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 Current Functional Impairments (Reported) Functional Limitations- ADL's Spouse provides assist, and max A on bad days. Other days she can use crutches to go to the bathroom and self dresses . Functional Limitations- Mobility/Gait Use of crutches or wheelchair. Functional Limitations- Work/School Not able to go to place of work; therefore is currently working from home. Functional Limitations- Recreation/ Not able to participate. Hobbies Personal Factors Other Personal Factors That May Effect Works at home because unable Therapy/Recovery to travel to workplace. Works 35 down to 20 hrs/week, 2 days a week. History of falls PT-OP-C Subjective Start: 09/16/17 08:08 Freq: Status: Active Protocol: Document 10/27/17 13:33 LRN (Rec: 10/27/17 14:36 LRN [id number]) OP-PT Subjective Patient Comments Patient Comments R leg 1 week ago had increased pain from putting weight through when LOB while in sitting. R thigh and arm is less sensitive. R knee distally is quite sensitive to touch. OP-PT Pain Assessment Pain Assessment Grid Paper Pain Assessment Grid Completed No Location Right Leg Pain Location Details R lower leg from knee distally most painful. PT-OP-F Manual Assessment Start: 09/16/17 08:08 Freq: Status: Active Protocol: Document 09/16/17 08:20 LRN (Rec: 09/16/17 17:54 LRN [id number]) Manual Assessments Soft Tissue Assessment Soft Tissue Mobility Assessment Mild increased temperature of R foot. Purple coloring of R foot when dependent. PT-OP-G Mobility & Gait Start: 09/16/17 08:08 Freq: Status: Active Protocol: Document 09/16/17 08:20 LRN (Rec: 09/16/17 17:54 LRN [id number]) OP Gait Assessment Gait Gait Assistance Required: Standby Assistance Total Assistance Able to Maintain Weight Bearing Status No During Gait Factors Limiting Gait Function Factors Limiting Gait Function Decreased Activity Tolerance Decreased Strength Limited Range of Motion Pain Poor Balance Comments Gait Comments Pt unable to ambulate due to pain in the R LE & UE. She is able to partially stand pivot transfer wheelchair to [facility] with NWBing on R LE. PT-OP-H Neuro Start: 09/16/17 08:08 Freq: Status: Active Protocol: Document 10/27/17 13:33 LRN (Rec: 10/27/17 14:36 LRN [id number]) Coordination Evaluation Lower Extremity Tests Right Foot Tapping Test 6 Left Foot Tapping Test 14 Deep Tendon Reflex & Clonus Assessment Deep Tendon Reflex Left Brachioradialis Deep Tendon Reflex 1+ Diminished Left Tricep Deep Tendon Reflex 1+ Diminished Left Bicep Deep Tendon Reflex 0 Absent Right Brachioradialis Deep Tendon Reflex 0 Absent Right Tricep Deep Tendon Reflex 2+ Normal Right Bicep Deep Tendon Reflex 0 Absent Left Achilles Deep Tendon Reflex 2+ Normal Left Patellar Deep Tendon Reflex 1+ Diminished Right Achilles Deep Tendon Reflex 0 Absent Right Patellar Deep Tendon Reflex 4+ Brisk PT-OP-J Posture/Palpation/Skin Start: 09/16/17 08:08 Freq: Status: Active Protocol: Document 09/19/17 08:20 LRN (Rec: 09/19/17 14:46 LRN [id number]) Skin Assessment Circumference Measurement 1 Location Fig 8 at ankle Measurement (Centimeters) 49 Comments Bilaterally PT-OP-K Range of Motion Start: 09/16/17 08:08 Freq: Status: Active Protocol: Document 10/06/17 13:33 LRN (Rec: 10/06/17 14:42 LRN [id number]) Hip Goniometric Range of Motion Hip Measured in Degrees Left Passive Testing Position Supine Abduction 70 Internal Rotation 20 External Rotation 55 Right Passive Testing Position Supine Flexion w/Knee Flexed 90 Abduction 40 Internal Rotation 10 External Rotation 60 Knee Goniometric Range of Motion Knee Measured in Degrees Right Extension Passive (degrees) 0 PT-OP-L Special Tests Start: 07/03/18 08:08 Freq: Status: Active Protocol: Document 09/19/17 08:20 LRN (Rec: 09/19/17 14:36 LRN [id number]) Special Tests Neural Special Tests- Upper Body Other- 1 Test Results + Right Comments Pronator Drift Test, R arm drifts down. Indicates possible upper motor neuron impairment. PT-OP-M Strength Start: 09/16/17 08:08 Freq: Status: Active Protocol: Document 09/16/17 08:20 LRN (Rec: 09/16/17 17:55 LRN [id number]) Ankle/Foot Strength Ankle and Foot Manual Muscle Testing Right Dorsiflexion (L4) 3- Fair- Plantarflexion (S1) 4 Good Inversion 3- Fair- Eversion (S1) 3- Fair- Comments Pain in LE with testing. Toe Strength Toe Manual Muscle Testing Right Flexion 3- Fair- Extension 2- Poor- Comments R LE pain with testing. PT-OP-T Assessment and Plan Start: 09/16/17 08:08 Freq: Status: Active Protocol: Document 11/07/17 15:29 LRN (Rec: 11/07/17 15:40 LRN [id number]) Physical Therapy Assessment Impairments Impairments Activity Tolerance Functional Mobility Gait Pain ROM Sensation Soft Tissue Mobility Strength Other Concerns Fall Risk Increased Age Related Concerns 19-35 year old: Impact on work, family. Barriers to Rehabilitation Chronicity of condition. Diagnosis Goals Three Impairment R UE pain limiting ability to weight bear for ambulation. Short Term Goal (STG) Pt will be able to tolerate weightbearing (WBing) through the R UE for ambulation. 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 LTG Duration 11/13/17 Two Impairment Debilitating R LE pain Short Term Goal (STG) Decreased R LE pain with pt able to stand and weight bear on the R LE for ambulation with use of an assistive device. STG Duration 10/06/17 GOAL MET Granulator Machine Operator Goal (LTG) Pt will be able to ambulate without use of an assistive device for short distances of 25' or more. LTG Duration 12/19/17 One Impairment Lacks appropriate Home program /self care Long-Term Goal (LTG) Educate pt in independent HEP/ Self care program to manage her condition. LTG Duration Goal Partially Met. Pt started on HEP Assessment Summary Assessment On the last attended visit on 10/27/17, the pt had poor tolerance to ex & gait. She demonstrated decreased coordination of RLE per foot taps. The R Lower leg/foot was most hypersensitive to touch. R LE traction increased pain. Pt DTR response are all variable. PT has atrophy of R LE. The pt' s presentation was different from my experience with CRPS in that she had no increased swelling or temperature in her limb, and her response to MH and ROM was not well tolerated . Her LE in the dependent position appeared atrophied and her foot was cold and purple in color. She appeared to have good circulation with a quick refill rate when pressure was applied to the toes. Physical Therapy Plan Other Referrals/Consults Referrals/Consults Recommended Examination for possible pathological involvement. Neurological consult if sensation changes persist. Discharge Physical Therapy Discharge Reasons Patient Request Discharge Comments Pt was last seen 10/27/17 and had a poor response to therapy . No further therapy is planned. DC from PT.
== END 2017-11-14 11:50 ==
LOC: PHYS 13:30
PROVIDERS: Family Provider Physician Assistant; PCP Physician Assistant; Visit Provider Internal Medicine
DX: G90.50 Complex regional pain syndrome I, unspecified (principal)
CPT/HCPCS: 97010; 97110; 97116; 97162; 97163